=== PATIENT | male | born 1965 | race American Indian/Alaskan Native ===

== ENCOUNTER 2019-10-08 02:02 | Emergency (ER) | payer SELFPAY ==
[2019-10-08 02:11] VITALS: BP 151/85
== END 2019-10-08 04:15 | disposition left against medical advice (07) ==
LOC: ED 02:02
DX: R22.0 Localized swelling, mass and lump, head (principal); Z53.21 Procedure and treatment not carried out due to patient leaving prior to being seen by health care provider